=== PATIENT | male | born 1985 | race Caucasian/White ===

== ENCOUNTER 2024-12-28 05:42 | Emergency (ER) | payer SELFPAY ==
--- NOTE | ~2024-12-28 | CT_ITS ---
CLINICAL INDICATION: Left lower quadrant pain COMPARISON: None. TECHNIQUE: Multiple contiguous axial images of the abdomen and pelvis were performed following the ad ministration of with 100 mL Omnipaque-350 intravenous contrast The dose-length product (DLP) was 618.58 mGy-cm. Automated exposure control and iterative reconstruction technique were employed. FINDINGS/OBSERVATIONS: Visualized lower thorax: The bilateral lung bases are clear. The heart is of normal size, without pericardial effusion. Small hiatal hernia is present. Liver: The liver demonstrates homogeneous enhancement and is not enlarged measuring 18 cm in longitudinal di mension. Gallbladder and biliary system: The gallbladder is only minimally distended, and otherwise unremarkable. Pancreas: The pancreas enhances homogeneously without ductal dilatation. Spleen: The spleen enhances homogeneously and is not enlarged measuring 8 cm in longitudinal dimension. Kidneys: Left-sided hydroureteronephrosis extending to the distal left ureter (at the level of the view of the UVJ where a 5 mm calculus is identified. The right kidney is unremarkable Adrenal glands: Unremarkable. Gastrointestinal tract: Colonic diverticulosis without surrounding inflammatory change. Appendix: The air-filled appendix is of normal caliber (axial series, images 78 through 88) Vasculature: Unremarkable. Lymph nodes: No pathologically enlarged or morphologically suspicious lymph nodes within the retroperitoneum or at the root of the mesentery. Pelvic structures: The bladder is minimally distended, and otherwise unremarkable. The prostate gland is not significantly enlarged. Body wall and musculoskeletal: Small fat-containing umbilical hernia. No significant degenerative disease within the lower thoracic or lumbosacral spine. IMPRESSION: Left-sided hydroureteronephrosis secondary to a 5 mm calculus at the left ureterovesicular junction. Reviewed, dictated and finalized at location A. IMPRESSION: Left-sided hydroureteronephrosis secondary to a 5 mm calculus at the left urete rovesicular junction.
--- OUTSIDE RECORDS SUMMARY | 2024-12-28 05:45 | XMS_ITS | Referral Summary ---
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 Gender Identity Not on file Sexual Orientation Not on file Last Filed Vital Signs Vital Sign Reading Time Taken Comments Blood Pressure 130/86 06/08/2021 1:33 PM CDT Pulse 76 06/08/2021 1:33 PM CDT Temperature 36.9 C (98.4 F) 06/08/2021 1:33 PM CDT Respiratory Rate 15 06/08/2021 1:33 PM CDT Oxygen Saturation 98% 06/08/2021 1:33 PM CDT Inhaled Oxygen Concentration - - Weight - - Height - - Body Mass Index - - Plan of Treatment Not on file Insurance [facility] CHOICE PLUS Care Teams Director Of Radiology Relationship Specialty Start Date End Date Pilo Jaeger MD [address] [facility] [place] [address] PCP - General Internal Medicine 06/08/21
--- OUTSIDE RECORDS SUMMARY | 2024-12-28 05:45 | XMS_ITS | Clinical Summary ---
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
--- OUTSIDE RECORDS SUMMARY | 2024-12-28 05:45 | XMS_ITS | Clinical Summary ---
Author Organization [facility] Care Team Providers Care Licensed Psychologist Name Role Phone Unavailable Primary Care Provider Unavailabl e Allergies Active Allergy Reactions Criticality Noted Date Comments Penicillins Vomiting,Other (see Comments) 04/30/2012 MUSCLE STIFFNESS Medications predniSONE (DELTASONE) 20 MG Tablet Take 1 Tablet by mouth daily. 7 Tablet 05/06/2021 Active Active Problems Problem Noted Date Diagnosed Date Anxiety state 05/20/2012 Social History Tobacco Use Types Packs/Day Years Used Date Smoking Tobacco: Never Assessed Sex and Gender Information Value Date Recorded Sex Assigned at Not on file Legal Sex Male 12:07 AM CDT Gender Identity Not on file Sexual Orientation Not on file Plan of Treatment Health Maintenance Due Date Last Done Comments Hepatitis C Virus (HCV) Screening 1984 TdaP Immunization 1984 Hepatitis B Immunization (1 of 3 - 19+ 3-dose series) 2003 Influenza Immunization (#1) 2024 SARS-COV-2 Immunization ( - 2023- season) 2024 Respiratory Syncytial Virus (RSV) Immunization (Adult) (1 - 1-dose 75+ series) 2059 Meningococcal Immunization (ACWY) Aged Out No longer eligible based on patient's age to complete this topic Pneumococcal Immunization Combined Aged Out No longer eligible based on patient's age to complete this topic Rotavirus Immunization Aged Out No lo nger eligible based on patient's age to complete this topic
[2024-12-28 05:51] VITALS: BP 174/113; PULSE 80; RESP 20; O2SAT 100
[2024-12-28 05:55] VITALS: TEMP 36
--- NOTE | 2024-12-28 05:57 | ED.GENADULT ---
HPI - General Adult General Chief complaint: Abdominal Pain <Jose Sky MD - Last Filed: 12/28/24 05:58> Stated complaint: llq pain <Jose Sky MD - Last Filed: 12/28/24 05:58> Time Seen by Provider: 12/28/24 05:55 <Jose Sky MD - Last Filed: 12/28/24 05:58> History of Present Illness HPI narrative: Patient is a 39-year-old gentleman who presents emergency department with chief complaint of left lower quadrant pain. Patient reports the pain started about 1 hour ago reports gait comfortable reports he has not had pain like this before reports that it is not improved by anything patient reports it feels like there is a not inside of him <Jose Sky MD - Last Filed: 12/28/24 05:58> Related Data Allergies/adverse reactions: Allergies Allergy/AdvReac Type Severity Reaction Status Date / Time Penicillins AdvReac Unknown Nausea and Verified 12/28/24 08:54 Vomiting <Jose Sky MD - Last Filed: 12/28/24 05:58> Review of Systems Review of Systems: A 10 system review of systems was completed on the patient and is negative except for what is stated in the HPI. Nursing and ancillary documentation was reviewed. <Jose Sky MD - Last Filed: 12/28/24 05:58> Exam Narrative: GENERAL: Well-appearing, well-nourished, and in moderate acute pain distress. HEAD: Normocephalic, atraumatic. EYES: PERRLA and EOMI. ENT: Nares clear, no rhinorrhea or epistaxis. Mucous membranes moist. NECK: Supple. CHEST: Clear to auscultation. No respiratory distress. HEART: Regular rate and rhythm. No murmur heard. Normal peripheral pulses. ABDOMEN: Soft, nontender, nondistended, normal active bowel sounds. EXTREMITIES: Normal range of motion. No edema. SKIN: Warm, dry, no rash. NEURO: No focal deficits. Alert and oriented x3. PSYCH: Normal mood and affect. <Jose Sky MD - Last Filed: 12/28/24 05:58> Course Vital Signs Vital signs: Vital Signs Pulse Rate 80 12/28/24 05:51 Respiratory Rate 20 12/28/24 05:51 Blood Pressure 174/113 H 12/28/24 05:51 Pulse Oximetry 100 12/28/24 05:51 Temperature 36.0 C L 12/28/24 05:55 Pulse Rate 76 12/28/24 07:08 Respiratory Rate 20 12/28/24 07:08 Blood Pressure 172/108 H 12/28/24 07:08 Pulse Oximetry 100 12/28/24 07:08 <Jose Sky MD - Last Filed: 12/28/24 05:58> Vital Signs Pulse Rate 80 12/28/24 05:51 Respiratory Rate 20 12/28/24 05:51 Blood Pressure 174/113 H 12/28/24 05:51 Pulse Oximetry 100 12/28/24 05:51 Temperature 36.0 C L 12/28/24 05:55 Pulse Rate 76 12/28/24 07:08 Respiratory Rate 20 12/28/24 07:08 Blood Pressure 172/108 H 12/28/24 07:08 Pulse Oximetry 100 12/28/24 07:08 <Eddie Serna MD - Last Filed: 12/28/24 10:18> Medical Decision Making Vital Signs Vital Signs: Vital Signs Pulse Rate 80 12/28/24 05:51 Respiratory Rate 20 12/28/24 05:51 Blood Pressure 174/113 H 12/28/24 05:51 Pulse Oximetry 100 12/28/24 05:51 Temperature 36.0 C L 12/28/24 05:55 Pulse Rate 76 12/28/24 07:08 Respiratory Rate 20 12/28/24 07:08 Blood Pressure 172/108 H 12/28/24 07:08 Pulse Oximetry 100 12/28/24 07:08 <Jose Sky MD - Last Filed: 12/28/24 05:58> Vital Signs Pulse Rate 80 12/28/24 05:51 Respiratory Rate 20 12/28/24 05:51 Blood Pressure 174/113 H 12/28/24 05:51 Pulse Oximetry 100 12/28/24 05:51 Temperature 36.0 C L 12/28/24 05:55 Pulse Rate 76 12/28/24 07:08 Respiratory Rate 20 12/28/24 07:08 Blood Pressure 172/108 H 12/28/24 07:08 Pulse Oximetry 100 12/28/24 07:08 <Eddie Serna MD - Last Filed: 12/28/24 10:18> Lab Data Result diagrams: 12/28/24 05:54 12/28/24 05:54 <Jose Sky MD - Last Filed: 12/28/24 05:58> Labs: Lab Results 12/28/24 12/28/24 Range/Units 05:54 06:41 WBC 9.8 (4.5-10.0) K/mm3 RBC 4.79 (4.6-6.20) M/mm3 Hgb 15.8 (14.0-18.0) g/dL Hct 45.8 (42.0-52.0) % MCV 95.6 (80-100) fl MCH 33.0 (26-34) pg MCHC 34.5 (32-36) g/dl RDW 12.0 (11.5-14.5) % Plt Count 302 (150-375) k/mm3 MPV 10.3 (7.4-10.4) fl Immature Gran % (Auto) 0.3 (0-0.5) % Neut % (Auto) 53.4 (45.5-73.1) % Lymph % (Auto) 34.8 (18.3-44.2) % [place] % (Auto) 8.7 H (2.6-8.5) % Eos % (Auto) 2.2 (0-4.4) % Baso % (Auto) 0.6 (0.2-1.2) % Lymph # (Auto) 3.42 H (0.9-3.2) K/mm3 [place] # (Auto) 0.9 H (0.1-0.6) K/mm3 Eos # (Auto) 0.2 (0-0.3) K/mm3 Baso # (Auto) 0.1 (0.0-0.1) K/mm3 Abs Immat Gran (auto) 0.03 (0.00-0.031) K/mm3 Absolute Neuts (auto) 5.2 (1.3-6.7) K/mm3 Absolute Nucleated RBC 0.000 (0.0-0.012) K/mm3 Nucleated RBC % 0.0 (0.0-0.2) % Sodium 141 (137-145) mmol/L Potassium 3.6 (3.4-5.0) mmol/L Chloride 103 (98-107) mmol/L Carbon Dioxide 20 L (22-30) mmol/L Anion Gap 18 H (4-12) mmol/L BUN 14 (9-20) mg/dL Creatinine 1.24 (0.7-1.3) mg/dL Estim Creat Clear Calc 73 ml/min Estimated GFR > 60 (59 - ) Glucose 161 H (65-110) mg/dL Calcium 10.0 (8.4-10.2) mg/dL Total Bilirubin 0.5 (0.2-1.3) mg/dL AST 30 (17-59) U/L ALT 30 (6-50) U/L Alkaline Phosphatase 54 (38-126) U/L Total Protein 8.0 (6.3-8.2) g/dL Albumin 5.0 (3.5-5.1) g/dL Lipase 108 (23-300) U/L Urine Color Yellow (Yellow) Urine Appearance Clear (Clear) Urine pH 8.0 (5.0-9.0) Ur Specific [place] 1.009 (1.001-1.035) Urine Protein Negative (Negative) mg/dL Urine Glucose (UA) Negative (Negative) mg/dL Urine Ketones Negative (Negative) mg/dL Ur Blood (Man) 2+ H (Negative) Urine Nitrate Negative (Negative) Urine Bilirubin Negative (Negative) Urine Urobilinogen 0.2 (<2.0) mg/dL Leukocyte Esterase Rfl Negative (Negative) SHERON/UL Urine RBC 11-20 H (0-2) /hpf Urine WBC 0-5 (0-3) /hpf Ur Squamous Epith Cells None seen (Few) /hpf Urine Bacteria None seen /hpf Urine Casts 0-2 <Jose Sky MD - Last Filed: 12/28/24 05:58> Lab Results 12/28/24 12/28/24 Range/Units 05:54 06:41 WBC 9.8 (4.5-10.0) K/mm3 RBC 4.79 (4.6-6.20) M/mm3 Hgb 15.8 (14.0-18.0) g/dL Hct 45.8 (42.0-52.0) % MCV 95.6 (80-100) fl MCH 33.0 (26-34) pg MCHC 34.5 (32-36) g/dl RDW 12.0 (11.5-14.5) % Plt Count 302 (150-375) k/mm3 MPV 10.3 (7.4-10.4) fl Immature Gran % (Auto) 0.3 (0-0.5) % Neut % (Auto) 53.4 (45.5-73.1) % Lymph % (Auto) 34.8 (18.3-44.2) % [place] % (Auto) 8.7 H (2.6-8.5) % Eos % (Auto) 2.2 (0-4.4) % Baso % (Auto) 0.6 (0.2-1.2) % Lymph # (Auto) 3.42 H (0.9-3.2) K/mm3 [place] # (Auto) 0.9 H (0.1-0.6) K/mm3 Eos # (Auto) 0.2 (0-0.3) K/mm3 Baso # (Auto) 0.1 (0.0-0.1) K/mm3 Abs Immat Gran (auto) 0.03 (0.00-0.031) K/mm3 Absolute Neuts (auto) 5.2 (1.3-6.7) K/mm3 Absolute Nucleated RBC 0.000 (0.0-0.012) K/mm3 Nucleated RBC % 0.0 (0.0-0.2) % Sodium 141 (137-145) mmol/L Potassium 3.6 (3.4-5.0) mmol/L Chloride 103 (98-107) mmol/L Carbon Dioxide 20 L (22-30) mmol/L Anion Gap 18 H (4-12) mmol/L BUN 14 (9-20) mg/dL Creatinine 1.24 (0.7-1.3) mg/dL Estim Creat Clear Calc 73 ml/min Estimated GFR > 60 (59 - ) Glucose 161 H (65-110) mg/dL Calcium 10.0 (8.4-10.2) mg/dL Total Bilirubin 0.5 (0.2-1.3) mg/dL AST 30 (17-59) U/L ALT 30 (6-50) U/L Alkaline Phosphatase 54 (38-126) U/L Total Protein 8.0 (6.3-8.2) g/dL Albumin 5.0 (3.5-5.1) g/dL Lipase 108 (23-300) U/L Urine Color Yellow (Yellow) Urine Appearance Clear (Clear) Urine pH 8.0 (5.0-9.0) Ur Specific [place] 1.009 (1.001-1.035) Urine Protein Negative (Negative) mg/dL Urine Glucose (UA) Negative (Negative) mg/dL Urine Ketones Negative (Negative) mg/dL Ur Blood (Man) 2+ H (Negative) Urine Nitrate Negative (Negative) Urine Bilirubin Negative (Negative) Urine Urobilinogen 0.2 (<2.0) mg/dL Leukocyte Esterase Rfl Negative (Negative) SHERON/UL Urine RBC 11-20 H (0-2) /hpf Urine WBC 0-5 (0-3) /hpf Ur Squamous Epith Cells None seen (Few) /hpf Urine Bacteria None seen /hpf Urine Casts 0-2 <Eddie Serna MD - Last Filed: 12/28/24 10:18> Imaging Data Radiologist's impression: Impressions Abdomen/Pelvis CT 12/28/24 06:57 IMPRESSION: Left-sided hydroureteronephrosis secondary to a 5 mm calculus at the left ureterovesicular junction. <Eddie Serna MD - Last Filed: 12/28/24 10:18> Discharge Plan Discharge Clinical Impression: Kidney stone on left side <Jose Sky MD - Last Filed: 12/28/24 05:58> Patient Disposition: Home, Self-Care <Jose Sky MD - Last Filed: 12/28/24 05:58> Condition: Stable <Jose Sky MD - Last Filed: 12/28/24 05:58> Instructions: Kidney Stones (ED), How to Strain Your Urine (ED) <Jose Sky MD - Last Filed: 12/28/24 05:58> Additional Instructions: Return if symptoms are worsening , call urologist for appointment, take Tylenol as as needed for aches and pain, continue home medications. <Jose Sky MD - Last Filed: 12/28/24 05:58> Patient Language: Bulgarian <Jose Sky MD - Last Filed: 12/28/24 05:58> Prescriptions: New tamsulosin [Flomax] 0.4 mg capsule 0.4 mg PO DAILY Qty: 10 0RF ondansetron HCl 4 mg tablet 4 mg PO Q4H Qty: 10 0RF Rx Instructions: 1st dose 1-2 hr before radiation hydrocodone-acetaminophen 5-325 mg tablet 1 tablet PO Q4H Qty: 20 0RF <Jose Sky MD - Last Filed: 12/28/24 05:58> Follow-up/Referrals: Chris Sam MD [Physician] - 12/29/24 UNKNOWN,DOCTOR [Primary Care Provider] - <Jose Sky MD - Last Filed: 12/28/24 05:58> Stand Alone Forms: Work/School Release IP <Jose Sky MD - Last Filed: 12/28/24 05:58>
[2024-12-28] MEDS: SODIUM CHLORIDE 0.9% IV 1,000 ML 999 ML IV CONT ×2 (06:01→06:24)
[2024-12-28] MEDS: ONDANSETRON INJ 4 MG/2 ML VIAL IV PUSH (06:01)
[2024-12-28 06:02] LABS: Basophils Absolute Auto 0.1 K/mm3 (0.0-0.1); Basophils Percent Auto 0.6 % (0.2-1.2); Eosinophils Absolute Auto 0.2 K/mm3 (0-0.3); Eosinophils Percent Auto 2.2 % (0-4.4); Hematocrit 45.8 % (42.0-52.0); Hemoglobin 15.8 g/dL (14.0-18.0); Immature Granulocyte Absolute 0.03 K/mm3 (0.00-0.031); Immature Granulocyte Percent A 0.3 % (0-0.5); Lymphocytes Absolute Auto 3.42 K/mm3 (0.9-3.2); Lymphocytes Percent Auto 34.8 % (18.3-44.2); Mean Corpuscular HGB Conc 34.5 g/dl (32-36); Mean Corpuscular Volume 95.6 fl (80-100); Mean Platelet Volume 10.3 fl (7.4-10.4); Monocytes Absolute Auto 0.9 K/mm3 (0.1-0.6); Monocytes Percent Auto 8.7 % (2.6-8.5); Neutrophils Absolute Auto 5.2 K/mm3 (1.3-6.7); Neutrophils Percent Auto 53.4 % (45.5-73.1); Platelet Count Result 302 k/mm3 (150-375); Red Blood Count 4.79 M/mm3 (4.6-6.20); White Blood Count 9.8 K/mm3 (4.5-10.0)
[2024-12-28] MEDS: HYDROmorphone HCL INJ (*CRX) 1 MG/ML SYR IV PUSH ×2 (06:03→06:27)
[2024-12-28 06:16] LABS: Alkaline Phosphatase 54 U/L (38-126); Anion Gap 18 mmol/L (4-12); Aspartate Amino Transferase 30 U/L (17-59); Bilirubin,Total 0.5 mg/dL (0.2-1.3); Blood Urea Nitrogen 14 mg/dL (9-20); Carbon Dioxide 20 mmol/L (22-30); Chloride 103 mmol/L (98-107); Estimated CRCL calculation 73 ml/min; Estimated Glomerular Filt Rate > 60; Glucose 161 mg/dL (65-110); Lipase 108 U/L (23-300); Potassium 3.6 mmol/L (3.4-5.0); Sodium 141 mmol/L (137-145)
[2024-12-28 06:23] LABS: Alanine Aminotransferase 30 U/L (6-50)
--- OUTSIDE RECORDS SUMMARY | 2024-12-28 06:38 | XMS_ITS | Referral Summary ---
Author Organization [address] Address [address] [place] [id number] Care Team Providers Care Butcher All Round Name Role Phone Pilo Jaeger MD Primary Care Provider +1- [phone] Allergies Active Allergy Reactions Criticality Noted Date Comments Penicillins Other (See comments),Vomiting Low 04/30/2012 MUSCLE STIFFNESS Medications No known medications Active Problems No known active problems Social History Tobacco Use Types Packs/Day Years Used Date Smoking Tobacco: Never Assessed Sex and Gender Information Value Date Recorded Sex Assigned at Not on file Legal Sex Male 11:[address] LIGHT Gender Identity Not on file Sexual Orientation [...] Plan of Treatment Not on file Insurance [facility] CHOICE PLUS Care Teams Butcher All Round Relationship Specialty Start Date End Date Pilo Jaeger MD [address] [facility] [facility] [address] [facility] [place] [address] PCP - General Internal Medicine 06/08/21
--- OUTSIDE RECORDS SUMMARY | 2024-12-28 06:38 | XMS_ITS | Clinical Summary ---
Author Organization [facility] Care Team Providers Care Facilities Assistant Name Role Phone Unavailable Primary Care Provider [...]
--- OUTSIDE RECORDS SUMMARY | 2024-12-28 06:38 | XMS_ITS | Clinical Summary ---
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
[2024-12-28 06:57] LABS: Add Urine Microscopic? YES; Appearance Urine Clear (Clear); Bacteria Urine None Seen /hpf; Bilirubin Urine Negative (Negative); Blood Urine 2+ (Negative); Color Urine Yellow (Yellow); Glucose Urine UA Negative (Negative); Ketones Urine Negative (Negative); Leukocyte Esterase Ur Negative LEU/UL (Negative); Nitrate Urine Negative (Negative); Non Pathogenic Casts 0-2; Protein Urine Negative (Negative); Specific Grav Ur 1.009 (1.001-1.035); Squamous Epithelial Cell Urine None Seen /hpf (Few); Urobilinogen Urine 0.2 mg/dL (<2.0); WBC Urine 0-5 /hpf (0-3)
[2024-12-28 07:00] VITALS: BP 160/110; PULSE 78; RESP 20; O2SAT 99
[2024-12-28 07:08] VITALS: BP 172/108; PULSE 76; RESP 20; O2SAT 100
[2024-12-28] MEDS: KETOROLAC 30 MG/ML VIAL (*BKC) IV PUSH (09:06)
[2024-12-28] MEDS: TAMSULOSIN HCL 0.4 MG CAPSULE PO (09:06)
[2024-12-28 10:27] VITALS: BP 123/89; PULSE 74; RESP 20; O2SAT 100
== END 2024-12-28 10:29 | disposition home or self-care (01) ==
PROVIDERS: Emergency Medicine; Emergency Provider Emergency Medicine
DX: N20.0 Calculus of kidney (principal)
CPT/HCPCS: 36415; 74177; 80053; 81001; 83690; 85025; 96361; 96374; 96375; 99284; A9270; J1171; J1885; J2405; J7030; Q9967